=== PATIENT | female | born 2000 | race Caucasian/White ===

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

== ENCOUNTER 2019-01-30 14:59 | Outpatient (CLI) | payer MEDICAID | END 2019-01-30 16:14 | disposition home or self-care (01) | LOC: OBT 14:59 → L-D 15:01 → OBT 16:14 | DX: O26.893 Other specified pregnancy related conditions, third trimester (principal); Z3A.30 30 weeks gestation of pregnancy; R06.02 Shortness of breath | CPT/HCPCS: 76818 ==

== ENCOUNTER 2019-01-30 16:30 | Emergency (ER) | payer MEDICAID | END 2019-01-30 17:22 | disposition home or self-care (01) | LOC: FTE 17:22 | DX: O99.513 Diseases of the respiratory system complicating pregnancy, third trimester (principal); J30.9 Allergic rhinitis, unspecified; Z3A.30 30 weeks gestation of pregnancy | CPT/HCPCS: 99282; Z7502 ==